=== PATIENT | female | born 1970 | race Caucasian/White ===

== ENCOUNTER 2016-12-24 16:00 | Inpatient (IN) | payer OTHER ==
[2017-01-06] MEDS ORDERED: FAMOTIDINE 20MG TABLET PO ONE (06:00)
[2017-01-06] MEDS ORDERED: CELECOXIB 100 MG CAPSULE PO ONE (06:00)
[2017-01-06] MEDS ORDERED: MECLIZINE 25 MG TABLET PO ONE (06:00)
[2017-01-06] MEDS ORDERED: CEFAZOLIN 2 Gram 2 GM/50 ML BAG IVPB ONE (06:00)
[2017-01-06] MEDS ORDERED: ACETAMINOPHEN 1,000 MG/100 ML BTL IV ONE (06:00)
[2017-01-06] MEDS ORDERED: METOCLOPRAMIDE 10 MG TABLET PO ONE (06:00)
[2017-01-06] MEDS ORDERED: ONDANSETRON HCL IV 4 MG/2 ML VIAL IVP PRN (10:30)
[2017-01-06] MEDS ORDERED: OXYCODONE HCL 5 MG TABLET PO PRN (10:30)
[2017-01-06] MEDS ORDERED: ZOLPIDEM TARTRATE 5 MG TABLET PO PRN (10:30)
[2017-01-06] MEDS ORDERED: METOCLOPRAMIDE HCL 10 MG/2 ML VIAL IVP PRN (10:30)
[2017-01-06] MEDS ORDERED: DIPHENHYDRAMINE HCL 25 MG CAPSULE PO PRN (10:30)
[2017-01-06] MEDS ORDERED: AL HYDROX/MAG HYDROX 30ML UD PO PRN (10:30)
[2017-01-06] MEDS ORDERED: SENNOSIDES/DOCUSATE SODIUM UD CAPSULE PO PRN (10:30)
[2017-01-06] MEDS: HYDROMORPHONE HCL 1 MG/ML CPJ IVP PRN (10:38)
[2017-01-06] MEDS: RINGERS SOLUTION,LACTATED 1,000 ML IV SCH (10:49)
--- NOTE | 2017-01-06 12:21 | RADIOLOGY REPORT ---
EXAM: LEFT HIP, TWO VIEWS HISTORY: PATIENT HAS A HISTORY OF LEFT TOTAL HIP ARTHROPLASTY. TECHNIQUE: Two views of the left hip are provided along with the comparison x- ray dated 10/14/16. FINDINGS: In the interval there has been the placement of a left total hip arthroplasty. Alignment of the left hip is anatomic. A drainage catheter tip is identified in the region of the lesser trochanter. Soft tissue emphysematous changes are identified overlying the left hip consistent with the recent surgery. Alignment of the left total hip arthroplasty is anatomic. IMPRESSION: INTERVAL PLACEMENT OF LEFT TOTAL HIP ARTHROPLASTY IS NOTED DISCUSSED ABOVE. JOB NUMBER: [id number] [facility]
[2017-01-06] MEDS: ACETAMINOPHEN 1,000 MG/100 ML BTL IV SCH ×2 (12:38→19:53)
[2017-01-06] MEDS ORDERED: HYDROMORPHONE HCL 2 MG/ML VIAL IV ONE ×2 (13:03→14:00)
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
[2017-01-06] MEDS: CEFAZOLIN 2 Gram 2 GM/50 ML BAG IVPB SCH ×2 (15:03→22:33)
[2017-01-06] MEDS ORDERED: NEOSTIGMINE 1 MG/1 ML,10ML VIAL IV ONE (15:04)
[2017-01-06] MEDS ORDERED: ROCURONIUM BROMIDE 50MG/5ML VIAL IV ONE (15:04)
[2017-01-06] MEDS ORDERED: ONDANSETRON HCL IV 4 MG/2 ML VIAL IVP ONE (15:04)
[2017-01-06] MEDS ORDERED: FENTANYL PF 0.25MG/5ML AMPUL IV ONE (15:04)
[2017-01-06] MEDS ORDERED: KETOROLAC 30 MG/ML VIAL IVP ONE (15:04)
[2017-01-06] MEDS ORDERED: MIDAZOLAM HCL 2MG/2ML VIAL IV ONE (15:04)
[2017-01-06] MEDS ORDERED: GLYCOPYRROLATE 0.2 MG/ML ML IV ONE (15:04)
[2017-01-06] MEDS ORDERED: LIDOCAINE 2% MDV (20MG/ML) 20ML VIAL IV ONE (15:04)
[2017-01-06] MEDS ORDERED: PROPOFOL 10 MG/ML VIAL IV ONE (15:04)
[2017-01-06] MEDS ORDERED: SEVOFLURANE 250 ML INH ONE (15:04)
[2017-01-06] MEDS: FONDAPARINUX 2.5 MG/0.5 ML SYR SQ SCH (15:09)
[2017-01-06] MEDS: OXYCODONE HCL 5 MG TABLET PO PRN ×2 (17:12→21:14)
[2017-01-06] MEDS ORDERED: PATIENT OWN MED: EACH NARES PRN (20:40)
[2017-01-06] MEDS ORDERED: OXYMETAZOLINE HCL 0.05% EACH NARES PRN (21:15)
[2017-01-06] MEDS: BUSPIRONE 7.5 MG PO SCH (21:28)
[2017-01-07] MEDS: ACETAMINOPHEN 1,000 MG/100 ML BTL IV SCH (01:08)
[2017-01-07] MEDS: OXYCODONE HCL 5 MG TABLET PO PRN ×3 (01:08→09:13)
[2017-01-07] MEDS: RINGERS SOLUTION,LACTATED 1,000 ML IV SCH ×2 (01:27→03:23)
[2017-01-07 06:21] LABS: HEMOGLOBIN 8.4 gm/dl (11.6-16.0); MEAN CELL VOLUME 97.7 fl (81-97); MEAN CORPUSCULAR HGB CONC 32.3 g/dl (32-36); PLATELET COUNT 203 K/uL (130-400); RED BLOOD COUNT 2.66 M/uL (3.80-5.40); RED CELL DISTRIBUTION WIDTH 11.6 % (11.5-14.5); WHITE BLOOD COUNT W/O DIFF 6.6 K/uL (4.2-12.2)
[2017-01-07 06:24] LABS: MEAN CORPUSCULAR HEMOGLOBIN 31.5 pg (27-33)
[2017-01-07] MEDS: HYDROMORPHONE HCL 1 MG/ML CPJ IVP PRN ×6 (08:14→21:40)
[2017-01-07] MEDS: CEFAZOLIN 2 Gram 2 GM/50 ML BAG IVPB SCH (08:16)
[2017-01-07] MEDS ORDERED: ACETAMINOPHEN W/ CODEINE 300MG/30MG TABLET PO PRN ×2 (10:30)
[2017-01-07] MEDS ORDERED: OXYCODONE/APAP 7.5MG/325MG TABLET PO PRN ×2 (10:30)
[2017-01-07] MEDS: CELECOXIB 100 MG CAPSULE PO SCH (11:05)
[2017-01-07] MEDS: NASACORT EACH NARES SCH (11:09)
[2017-01-07] MEDS: PREMARIN PO SCH (11:09)
[2017-01-07] MEDS: PATIENT OWN MED: LORATADINE 10 MG PO SCH (11:09)
[2017-01-07] MEDS: PATIENT OWN MED: SERTRALINE 50 MG PO SCH (11:10)
[2017-01-07] MEDS: BUSPIRONE 7.5 MG PO SCH ×2 (11:11→21:37)
--- NOTE | 2017-01-07 11:55 | Physical Therapy Tx Note ---
Physical Therapy Tx Note - Treatment Note Tolerated: Good (Patient having a lot of pain today and has had quite a lot of pain med. Just received another dose so willing to get up and walk with FWW. Able to actually walk and perform stairs and helped patient get dressed.) Total Time Spent With Patient: 30 Physical Therapy Tx Note: Detail (Patient seen in room, just had pain med so supine to sit with min assist with left LE, sit at edge of bed and assisted patient to put on long pants (sweats) then sit to stand with CGA, ambulated with FWW about 60 feet to stairs with WBAT left LE. Able to step down stairs with crutches (had switched out while standing at rail) with proper technique then back up steps with good tolerance and technique. Walked back to room with crutches WBAT and after back to bed changed height of crutches so better for patient. Assisted patient at edge of bed then left her to finish dressing; present to assist back to lie down or sit up in chair.) Physical Therapy Problem List: Detail (Decreased functional mobility, bed and transfers yet, decreased gait flat surfaces and steps.) Physical Therapy Goals: 1. Patient will be able to independently move from bed, get back into bed with very little assist. 2. Gait with appropriate assistive device community distances. 3. Steps as needed to go home safely. Prognosis: Good (Patient's mobility better today but quite a lot of issue with pain yet. Should do better this afternoon and plans to go home today if doctor feels doing well enough.) Physical Therapy Plan: Continue PT for rehab BID tomorrow and probable discharge home. If patient needs more PT, may be able to see her Tuesday am if has not passed skills for going home.
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
--- NOTE | 2017-01-07 15:28 | Physical Therapy Tx Note ---
Physical Therapy Tx Note - Treatment Note Tolerated: Good (Patient able to walk but still with significant pain and feels "clunking" at hip. Notes noise when lifts leg but pain increases with weightbearing. Has passed all skills to go home except pain not controlled yet.) Total Time Spent With Patient: 20 Physical Therapy Tx Note: Detail (Patient seen in room and sitting up in chair, sit to stand independently with FWW and ambulated into mendoza about 100 feet past nurse's station then back to room. Assisted patient into bed with min assist with left LE. Patient very sore so did not do exercises this afternoon. Patient understands all exercises.) Physical Therapy Problem List: Detail (Decreased functional mobility, bed and transfers yet, decreased gait flat surfaces and steps.) Physical Therapy Goals: 1. Patient will be able to independently move from bed, get back into bed with very little assist. 2. Gait with appropriate assistive device community distances. 3. Steps as needed to go home safely. Prognosis: Good (Once pain controlled, patient should do well. May stay overnight and SENIOR MANUFACTURING TECHNICIAN coming in tomorrow will check on patient to see if wants some therapy. Patient has passed all skills for discharge home.) Physical Therapy Plan: Continue PT for rehab BID tomorrow and probable discharge home. If patient needs more PT, may be able to see her Tuesday am if has not passed skills for going home.
[2017-01-07] MEDS: FONDAPARINUX 2.5 MG/0.5 ML SYR SQ SCH (18:18)
[2017-01-07] MEDS: OXYCODONE/APAP 7.5MG/325MG TABLET PO PRN ×2 (18:23→21:06)
[2017-01-07] MEDS: MAGNESIUM HYDROXIDE 30 ML UDC PO PRN (21:36)
[2017-01-08] MEDS: OXYCODONE/APAP 7.5MG/325MG TABLET PO PRN ×5 (00:14→14:01)
[2017-01-08] MEDS: RINGERS SOLUTION,LACTATED 1,000 ML IV SCH ×2 (01:12→17:03)
[2017-01-08] MEDS: HYDROMORPHONE HCL 1 MG/ML CPJ IVP PRN (02:40)
[2017-01-08 06:15] LABS: HEMATOCRIT 23.3 % (35.0-47.0); HEMOGLOBIN 7.4 gm/dl (11.6-16.0); MEAN CELL VOLUME 98.7 fl (81-97); MEAN CORPUSCULAR HGB CONC 31.8 g/dl (32-36); MEAN PLATELET VOLUME 10.2 fl (7.4-10.4); PLATELET COUNT 165 K/uL (130-400); RED BLOOD COUNT 2.36 M/uL (3.80-5.40); RED CELL DISTRIBUTION WIDTH 11.8 % (11.5-14.5); WHITE BLOOD COUNT W/O DIFF 6.2 K/uL (4.2-12.2)
[2017-01-08 06:16] LABS: MEAN CORPUSCULAR HEMOGLOBIN 31.3 pg (27-33)
[2017-01-08] MEDS: CELECOXIB 100 MG CAPSULE PO SCH (11:09)
[2017-01-08] MEDS: BUSPIRONE 7.5 MG PO SCH (11:18)
[2017-01-08] MEDS: PATIENT OWN MED: LORATADINE 10 MG PO SCH (11:19)
[2017-01-08] MEDS: PREMARIN PO SCH (11:19)
[2017-01-08] MEDS: PATIENT OWN MED: SERTRALINE 50 MG PO SCH (11:19)
[2017-01-08] MEDS: NASACORT EACH NARES SCH (11:19)
[2017-01-08] MEDS: MAGNESIUM HYDROXIDE 30 ML UDC PO PRN (11:41)
--- NOTE | 2017-01-08 12:54 | Physical Therapy Tx Note ---
Physical Therapy Tx Note - Treatment Note Tolerated: Good Total Time Spent With Patient: 60 Physical Therapy Tx Note: Detail (Pt was supine in bed upon arrival. Pt states still having 8/10 pain with gait and decreases with rest. Pt states still having "popping sound at left upper thigh area with activity. Pt completed ex's of glute sets, quad sets, heel slides, all x 10. Passive calf stretch 30 " hold x 3. Active hip IR to neutral in supine x 10. Pt ambulated x 200 ft. with crutches with contact guard assist. Pt went to the bathroom and completed self care independently. CYLINDER PRESS OPERATOR HELPER assist minimally with washing and dressing. Applied Pt' s lymphedema wrap as requested by Pt. MTT x 15 min. to left hip, ITB, hip adductors, pectinius releases with pt supine. Pt was able to complete all transfers from supine to sit to stand and return with min assist x 1. Pt independent in bed mobility. Pt was returned to bed, given nurses call light, ice pack to left hip, and bedside table within reach.) Physical Therapy Problem List: Detail (Decreased functional mobility, bed and transfers yet, decreased gait flat surfaces and steps.) Physical Therapy Goals: 1. Patient will be able to independently move from bed, get back into bed with very little assist. 2. Gait with appropriate assistive device community distances. 3. Steps as needed to go home safely. Prognosis: Good Physical Therapy Plan: Continue PT for rehab BID tomorrow and probable discharge home. If patient needs more PT, may be able to see her Tuesday am if has not passed skills for going home.
--- NOTE | 2017-01-08 13:54 | Physical Therapy Tx Note ---
Physical Therapy Tx Note - Treatment Note Tolerated: Good Total Time Spent With Patient: 5 Physical Therapy Tx Note: Detail (No charge follow up. Pt to be discharged from PT at this time as discharged from hospital by .) Physical Therapy Problem List: Detail (Decreased functional mobility, bed and transfers yet, decreased gait flat surfaces and steps.) Physical Therapy Goals: 1. Patient will be able to independently move from bed, get back into bed with very little assist. 2. Gait with appropriate assistive device community distances. 3. Steps as needed to go home safely. Prognosis: Good Physical Therapy Plan: Continue PT for rehab BID tomorrow and probable discharge home. If patient needs more PT, may be able to see her Tuesday am if has not passed skills for going home.
[2017-01-08] MEDS: FONDAPARINUX 2.5 MG/0.5 ML SYR SQ SCH ×3 (14:07→17:07)
--- NOTE | 2017-01-11 11:01 | Operative Note ---
DATE OF SURGERY: 01/06/2017 Surgeon: Tejas Ross DO Referring physician: DIVYA Person PREOPERATIVE DIAGNOSES: 1. Secondary osteoarthritis of the left hip. 2. Retained hardware of the left hip. POSTOPERATIVE DIAGNOSES: 1. Secondary osteoarthritis of the left hip. 2. Retained hardware of the left hip. OPERATION: 1. Left total hip arthroplasty. 2. Removal of hardware left hip. Anesthesia: General. PROCEDURE: This 46-year-old female was taken to the operating room and placed in the supine position on the operating room table. A general anesthetic was administered. She was placed in the right lateral decubitus position with all bony prominences well padded and the head well secured. The patient was secured perpendicular to the floor, and all scrubbed personnel wore personal isolation suits. A lateral hip incision was made dissecting down through the skin and subcutaneous tissue. Hemostasis was obtained with the electrocautery. The tensor was split in line with the skin incision to expose the lateral aspect of the greater trochanter. A self-retaining hip retractor was placed. Short rotators easily identified. Utilizing the electrocautery, we dissected down to the joint capsule and a capsulotomy was performed and a gonzalo made on the greater trochanter replaced Yanci pin retractors, one superiorly, one posterior superiorly, one posterior inferiorly, for excellent exposure to the acetabulum. The distance was measured from the gonzalo to the proximal pin and the hip was dislocated and the neck amputated. The pin, which had been placed in the hip, remained in the femur, it did not come out with the head. It broke through the head as we were pulling it out. We then placed a drill on the pin and were able to remove it that way without any difficulty. Subsequently, the neck cut was re-cut to satisfactory position. Subsequently, a Cobra retractor was placed anteriorly, osteophytes were removed from the hip and the soft tissue about the hip was removed including the labrum circumferentially and soft tissue at the base of the condyloid notch. We then began reaming with a size 44 mm reamer and reaming up in 1 mm increments to a size 48. The trial cup was placed and was felt to be satisfactory, and then subsequently a size 48 Trident cup was impacted into place with about 40 degrees of abduction and approximately 20 degrees of anteversion. The cup seemed to be solid and a trial liner was placed. We then directed our attention to the proximal femur and shorthand teacher was placed down the shaft after the box osteotome was used to cut the proximal femur. Then, we began reaming using an alternating [id number] technique starting with a size 5 and reamed up to a size 7. The size 7 broach was seated and excellent stability was identified. Trial reduction was accomplished and her hip was very contracted and very tight due to the previous radiation of her hip, but we were able to get this reduced, but it did take a -5 head to do so. Once this had been accomplished, the hip was taken through a range of motion with excellent stability of the hip being identified with flexion to 110 to 15, internal rotation to about 70 to 80 degrees, and wide abduction and external rotation with no instability being identified. All trial components were then removed and the wound copiously irrigated with pulse lavage lactated Ringer's solution. A size 36 mm internal diameter X3 liner was impacted into place, 0 degree, followed by the insertion of a size 7 collared secure fit femur and a size 36 mm -5 Biolox head that was impacted into place. The hip was then reduced and again taken through range of motion with excellent stability being identified. The wound again was copiously irrigated with lactated Ringer's solution. A drain placed through a separate stab incision. The short rotators were repaired through drill holes through the greater trochanter and this was done with #5 Ethibond suture. Subsequently, the tensor was repaired with a #2 Vicryl, subcutaneous tissue closed with 0 Vicryl, the skin was stapled. Sterile dressings applied and the patient taken to the recovery room in satisfactory condition. GROSS PATHOLOGY: This patient demonstrated the contracture of the left hip, severe osteoarthritis secondary to her previous surgery and radiation of the hip was identified, with osteophytes around the femur, which were removed. She had a threaded Yanci pin in the neck of the femur, which extended out to the lateral cortex and this was removed in the manner described above. SIM
--- NOTE | 2017-01-11 17:50 | Discharge Summary ---
DATE OF ADMISSION: 01/06/2017 DATE OF DISCHARGE: 01/08/2017 ADMITTING DIAGNOSES: 1. Osteoarthritis of the left hip. 2. Retained hardware, left hip. DISCHARGE DIAGNOSES: 1. Osteoarthritis of the left hip. 2. Retained hardware, left hip. OPERATIVE PROCEDURES: 1. Elective left total hip arthroplasty. 2. Removal of hardware, left hip. DESCRIPTION: This 46-year-old female was taken to the operating room for total hip arthroplasty and hardware removal. At the time of the surgery, the pin was removed, however it was not noted that the pin actually broke off leaving a very small segment of that pin buried in the bone, however it did not interfere with insertion of the broaches or final prosthesis, and postoperative x-ray demonstrated a small fragment of pin, which certainly was not causing a problem of any kind. The x-rays otherwise showed excellent position and alignment of the components. Patient did well postoperatively, but was quite painful initially, and so needed to stay the second day. She did not show any evidence of DVT. Pain much improved today. The patient will be discharged home, and she will be discharged with outpatient physical therapy and lymphedema therapy. She will take aspirin 325 mg b.i.d. She will take Percocet 7.5/325 one or two every 6 hours as necessary for pain, and she was given 80. Routine wound care instructions were given. I will see her on 01/20/2017 for followup visit. Should she have any problems prior to being seen, she was instructed to call my office. SIM
== END 2017-01-08 15:03 | disposition home or self-care (01) | DRG 470 ==
LOC: MEDSURG 01-06 06:26
PROVIDERS: ADMIT Orthopaedic Surgery; ATTEND Orthopaedic Surgery
PROC: 0YPB0JZ Removal of Synthetic Substitute from Left Lower Extremity, Open Approach (ICD-10-PCS; 2017-01-06)
PROC: 0SRB04A Replacement of Left Hip Joint with Ceramic on Polyethylene Synthetic Substitute, Uncemented, Open Approach (ICD-10-PCS; principal; 2017-01-06 08:00)
DX: M16.7 Other unilateral secondary osteoarthritis of hip (principal); T84.89XA Other specified complication of internal orthopedic prosthetic devices, implants and grafts, initial encounter; Z85.830 Personal history of malignant neoplasm of bone; I89.0 Lymphedema, not elsewhere classified
CPT/HCPCS: 85025; 94760; 97110; 97116; 97140; 97165; 97530; C1776; J1170; J1885; J2405; J2710; J7120

== ENCOUNTER 2019-03-28 14:32 | Observation (INO) | payer MEDICAID ==
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
[2019-03-28] MEDS ORDERED: 0.9 % SODIUM CHLORIDE 1,000 ML BAG IV ONE (15:43)
[2019-03-28 15:57] LABS: ABSOLUTE NEUTROPHIL COUNT 10.76; HEMATOCRIT 41.7 % (35.0-47.0); HEMOGLOBIN 13.7 gm/dl (11.6-16.0); MEAN CELL VOLUME 92.3 fl (81-97); MEAN CORPUSCULAR HEMOGLOBIN 30.3 pg (27-33); MEAN CORPUSCULAR HGB CONC 32.9 g/dl (32-36); MEAN PLATELET VOLUME 9.8 fl (7.4-10.4); PLATELET COUNT 281 K/uL (130-400); RED BLOOD COUNT 4.52 M/uL (3.80-5.40); RED CELL DISTRIBUTION WIDTH 13.1 % (11.5-14.5); WHITE BLOOD COUNT W/O DIFF 11.8 K/uL (4.2-12.2)
[2019-03-28 16:08] LABS: BLOOD UREA NITROGEN 10 mg/dL (6-20); CREATININE 0.5 mg/dL (0.5-0.9); EST GLOMERULAR FILTRATION RATE > 60 mL/min
[2019-03-28 16:10] LABS: GLUCOSE,RANDOM 110 mg/dL (74-109)
[2019-03-28 16:16] LABS: PLATELET ESTIMATE NORMAL (NORMAL)
[2019-03-28] MEDS ORDERED: ACETAMINOPHEN 1,000 MG/100 ML BTL IVPB ONE (16:28)
[2019-03-28] MEDS ORDERED: VANCOMYCIN HCL 1,000 MG in 0.9 % SODIUM CHLORIDE 250ML 250 ML IVPB ONE (16:29)
[2019-03-28] MEDS ORDERED: VANCOMYCIN 1GM/200ML PREMIX 1 GM/200 ML PIGGYBACK IVPB ONE (16:45)
--- NOTE | 2019-03-28 17:40 | ULTRASOUND REPORT ---
EXAMINATION: Left Lower Extremity Venous Duplex Doppler Ultrasound EXAM DATE: 03/28/2019 5:21 PM TECHNIQUE: Real-time B-mode imaging with and without compression was used to evaluate the left lower extremity for deep venous thrombosis (DVT). Duplex Doppler with color and spectral Doppler was used . INDICATION: swollen red leg COMPARISON: None FINDINGS: Left Common Femoral Vein: No DVT. Left Femoral Vein: No DVT. Left Popliteal Vein: No DVT. Left Proximal Deep Femoral Vein: No DVT. Left Posterior Tibial Veins: No DVT. Left Peroneal Veins: No DVT. Left proximal Great Saphenous Vein: No thrombus. Duplex Doppler: Spectral Doppler waveforms show normal respiratory phasicity in the common femoral vein. Additional Findings: None. IMPRESSION: There is no deep venous thrombosis in the visualized deep veins of the left lower extremity. Dictated by: Randy Everett MD on 03/28/2019 5:36 PM. .
[2019-03-28] MEDS ORDERED: 0.9 % SODIUM CHLORIDE 1000ML 1,000 ML IV ONE (19:28)
[2019-03-28] MEDS ORDERED: VANCOMYCIN HCL 1,000 MG in 0.9 % SODIUM CHLORIDE 250ML 250 ML IVPB SCH (19:28)
[2019-03-28] MEDS: ACETAMINOPHEN 325 MG TAB PO PRN (20:21)
[2019-03-29] MEDS: VANCOMYCIN HCL 1,250 MG in 0.9 % SODIUM CHLORIDE 250ML 250 ML IVPB SCH ×3 (00:26→20:31)
[2019-03-29] MEDS: ACETAMINOPHEN 325 MG TAB PO PRN ×2 (07:34→20:26)
[2019-03-29] MEDS: ENOXAPARIN 40 MG/0.4 ML SYR SC SCH (10:24)
[2019-03-29] MEDS: SERTRALINE HCL 50 MG TABLET PO SCH ×2 (10:49→21:47)
[2019-03-29] MEDS: HYDROCHLOROTHIAZIDE 25 MG TABLET PO SCH (10:49)
[2019-03-29] MEDS: LOSARTAN POTASSIUM 25 MG TABLET PO SCH (10:49)
[2019-03-29] MEDS: MELOXICAM 7.5 MG TABLET PO SCH (10:50)
[2019-03-29] MEDS: FAMOTIDINE 20MG TABLET PO SCH ×2 (10:50→21:47)
[2019-03-29] MEDS ORDERED: MUPIROCIN OINT 22 GM TUBE TOP PRN (13:00)
[2019-03-29] MEDS: DOXYCYCLINE HYCLATE 100 MG CAPSULE PO SCH ×2 (13:26→21:47)
--- NOTE | 2019-03-29 15:00 | History and Physical Report ---
DATE: 03/29/2019 HISTORY OF PRESENT ILLNESS: A 48-year-old female who presented to the emergency department stating she had fever, chills, headache, and a history of cellulitis of her skin. She has a red toe with possible ingrown nail, left great toe. She said she bumped that and pus came out along the side of the nail approximately 3 days ago. She also has chronic lymphedema of the left leg but she wraps her legs daily. Her primary is Caroline Puentes NP. After taking the wraps off, her whole left leg was red all the way up to the groin. She said it was not like this yesterday. The patient has had multiple surgeries on her left hip. At 10 years of age, she had a slipped capitis of the hip requiring surgery at 10 and 13 years of age. She also had 3 hip replacement surgeries on the left hip after a fracture and then problems with that. Her last surgery was in November [address] [place] [address] Wang. The patient vomited in the ER and feels very nauseated. PAST MEDICAL HISTORY: She has lymphedema of the left leg, multiple surgeries on the left leg starting as a 10-year-old with a slipped capitis of the hip. She had surgery at 10 and at 13. Three hip replacement surgeries, last one being November 2018. Occasionally has vertigo. Hypertension, depression, anxiety. History of cancer with abdominal rhabdomyosarcoma and radiation. She had blood transfusions at age 3. PAST SURGICAL HISTORY: Hysterectomy, cancer removed from the abdomen, rhabdomyosarcoma, cholecystectomy, multiple surgeries on the left hip, fracture surgery on her left wrist. MEDICATIONS: 1. Famotidine 40 mg daily. 2. Calcium with vitamin D 1 b.i.d. 3. Hydrochlorothiazide 25 mg a day. 4. Premarin 1.25 mg daily. 5. Cetirizine 10 mg daily. 6. Losartan 75 mg a day. She takes a 50 plus a 25 for her hypertension. 7. Meloxicam 50 mg a day. 8. Sertraline 150 mg a day. She also uses compression socks on her left leg for her lymphedema. ALLERGIES: HYDROCODONE, TRAMADOL. SOCIAL HISTORY: She has never smoked. No drug use. Occasional alcohol use. FAMILY HISTORY: Father, mother, grandparents had cancer. REVIEW OF SYSTEMS: HEENT: She has a fever, nauseated, headache. No pain moving her neck. No signs of meningitis. Cardiovascular: No arrhythmias, chest pain, palpitations, or orthopnea. Respiratory: No cough, cold, or congestion. Gastrointestinal: No nausea, vomiting, diarrhea, black stools, or bloody stools. Genitourinary: No dysuria, hematuria, frequency, or burning on urination. Musculoskeletal: See the Chief Complaint. She has redness in the entire left leg up to the groin and redness on the left great toe with a paronychia that drained spontaneously a couple of days ago. Neurological: Denies tremors, paralysis but she does have a neuropathy. DIRECT SUPPORT PROFESSIONAL: No recent vaginal bleeding, lumps in her breasts, or breast pain. Endocrine: She has hypothyroidism. No diabetes. No change in weight. No polyuria or polydipsia. Integument: See Chief Complaint. She has a red leg from the ankle to the groin on the left side with a red left great toe and a previous paronychia that drained. No jaundice. PHYSICAL EXAMINATION: VITALS: Height 5 feet 4 inches, weight 160 pounds. Temperature in the emergency department 102.4, pulse 105, blood pressure 146/86, respiratory rate 20, pulse ox 98% on room air. HEENT: Pupils are equal, round, and reactive to light and accommodation. Extraocular muscles are intact. Throat is clear. Nose is clear. Tympanic membranes are swanson. NECK: Supple. No jugular venous distention. No hepatojugular reflux. No signs of meningitis. LYMPH NODES: No enlargement palpated. CARDIOVASCULAR: Regular rate and rhythm without murmurs, clicks, rubs, or gallops. RESPIRATORY: Clear to auscultation and percussion. ABDOMEN: Soft, nontender. No hepatosplenomegaly, no masses, no tenderness. Bowel sounds are active. EXTREMITIES: She has chronic lymphedema of the left leg. She has redness of the entire left leg and redness of the left great toe. BREASTS: Deferred. RECTAL: Deferred. GENITALIA: Deferred. NEUROLOGIC: Cranial nerves II-XII intact. No gross defects. Sensation normal, strength normal. Deep tendon reflexes equal bilaterally. MENTAL STATUS: Alert and oriented x3. SKIN: There is redness of the left lower leg with redness of the great toe with signs of paronychia and possible ingrown toenail of left great toenail. IMPRESSION: 1. Cellulitis of the left leg. 2. Acute paronychia left great toe with redness of the great toe. 3. Multiple surgeries on the left hip, last one being November 2018 for hip replacement. 4. Hypertension. 5. She has had abdominal rhabdosarcoma as a child with radiation therapy. PLAN: We will admit to the hospital with IV vancomycin. DVT coverage with Lovenox. Further evaluation. MTDD
[2019-03-29 19:32] LABS: CREATININE 0.5 mg/dL (0.5-0.9); EST GLOMERULAR FILTRATION RATE > 60 mL/min
[2019-03-30] MEDS: VANCOMYCIN HCL 1,250 MG in 0.9 % SODIUM CHLORIDE 250ML 250 ML IVPB SCH ×3 (03:17→10:24)
[2019-03-30] MEDS ORDERED: IBUPROFEN 400 MG TABLET PO PRN (04:53)
[2019-03-30] MEDS ORDERED: VANCOMYCIN 1.5GM/300ML PREMIX 1.5 GM/300 ML PIGGYBACK IVPB SCH (09:30)
[2019-03-30] MEDS: LOSARTAN POTASSIUM 25 MG TABLET PO SCH (10:22)
[2019-03-30] MEDS: HYDROCHLOROTHIAZIDE 25 MG TABLET PO SCH (10:25)
[2019-03-30] MEDS: ENOXAPARIN 40 MG/0.4 ML SYR SC SCH (10:25)
[2019-03-30] MEDS: MELOXICAM 7.5 MG TABLET PO SCH (10:26)
[2019-03-30] MEDS: DOXYCYCLINE HYCLATE 100 MG CAPSULE PO SCH (10:26)
--- NOTE | 2019-03-30 12:51 | Discharge Summary ---
Providers Discharge Summary Date: 03/30/19 Date of admission: 03/28/19 18:45 Expected Date of Discharge: 03/30/19 Attending physician: Guru Go Primary care physician: Caroline Puentes N.P. Physical Exam - Vital Signs Vital Signs: Vital Signs - Last 24 Hrs Temp Pulse Pulse Resp BP BP Pulse Ox 03/30/19 10:00 97.6 F 84 14 121/69 98 03/30/19 08:08 98.0 F 80 14 112/68 97 03/30/19 05:02 97.7 F 69 18 114/69 97 03/30/19 02:00 98.0 F 68 16 108/62 96 03/29/19 20:00 97.6 F 76 18 116/69 97 03/29/19 17:16 98.3 F 76 16 107/66 99 03/29/19 15:15 98.1 F 72 20 106/63 97 - General General Appearance: Alert, Oriented x3, Cooperative, No acute distress, Mild distress, Other (fever) - Head Head exam: Normal inspection - Eye Eye exam: Normal appearance, PERRL Pupils: Normal accommodation - ENT ENT exam: Normal exam, Mucous membranes moist, Normal external ear exam, Normal orophraynx, TM's normal bilaterally Ear exam: Normal external inspection. negative: External canal tenderness Nasal Exam: Normal inspection. negative: Discharge, Sinus tenderness Mouth exam: Normal external inspection, Tongue normal Teeth exam: Normal inspection. negative: Dental caries Throat exam: Normal inspection. negative: Tonsillar erythema, Tonsillar exudate - Neck Neck exam: Normal inspection, Full ROM. negative: Tenderness - Respiratory Respiratory exam: Normal lung sounds bilaterally. negative: Respiratory distress - Cardiovascular Cardiovascular Exam: Regular rate, Normal rhythm, Normal heart sounds - GI/Abdominal GI/Abdominal exam: Soft, Normal bowel sounds. negative: Tenderness - Rectal Rectal exam: Deferred - exam: Deferred - Extremities Extremities exam: Full ROM, Normal capillary refill, Tenderness (left great toe and redness of the entire leg) - Back Back exam: Reports: Normal inspection, Full ROM. Denies: Muscle spasm, Rash noted, Tenderness - Neurological Neurological exam: Alert, Normal gait, Oriented X3, Reflexes normal - Psychiatric Psychiatric exam: Normal affect, Normal mood - Skin Skin exam: Rash (redness of the left great leg) Hospitalization - Hospitalization Admission Diagnosis: cellulitis of leg. paronychia left great toe. ingrown toe nail - Problem List/Discharge Diagnosis (1) Lymphedema Current Visit: Yes Status: Acute Base Code: I89.0 - LYMPHEDEMA, NOT ELSEWHERE CLASSIFIED Diagnosis Priority: Secondary Comment: go back to wearing compression socks and wraps as before (2) Ingrown left big toenail Current Visit: Yes Status: Acute Base Code: L60.0 - INGROWING NAIL Diagnosis Priority: Primary Comment: partial nail removed to stop the ingrown nail and to allow it to drain. done in the ED (3) Acute paronychia Current Visit: Yes Status: Acute Base Code: [id number] - Diagnosis Priority: Primary Comment: treated with vancomycin IV and oral doxy 100 mg bid on discharge sending home with oral [id number] mg bid and oral keflex 500 mg TID (4) Cellulitis Current Visit: Yes Status: Acute Discharge Diagnosis: Site of cellulitis: extremity Site of cellulitis of extremity: lower extremity Laterality: left Qualified Code(s): L03.116 - Cellulitis of left lower limb Base Code: L03.90 - CELLULITIS, UNSPECIFIED Comment: treated initially with IV vancomycin and oral doxy - Disposition discharge to home for oral antibiotics - Hospitalization Course Disposition: Home, Self-Care Hospital Course: the redness in the leg is improving dramatically on discharge and the toe is healing nicely Procedures: Imaging and X-Rays 03/28/19 15:42 VENOUS DOPPLER LOWER EXT LT [US] Stat Abnormal Labs: Abnormal Lab Results 03/28/19 03/28/19 Range/Units 15:48 15:52 Neutrophils % 90.0 H (47-80) % Lymphocytes 5.0 L (16-45) % Sodium 135 L (136-145) mmol/L Chloride 93 L (98-107) mmol/L Random Glucose 110 H (74-109) mg/dL Condition at Discharge: (2) Stable Discharge Diagnosis: cellulitis of left leg, Acute paronychia left great toe,Lymphedema, Ingrow VTE Discharge VTE Reason For No Overlap Therapy: Not Indicated Discharge Medications - Discharge Medications Prescriptions: Mupirocin [Bactroban] 1 gm TOP BID PRN #30 gm PRN Reason: Split Medications Cephalexin [Keflex] 500 mg PO TID #30 cap Doxycycline Hyclate [Vibramycin] 100 mg PO BID #20 capsule Home Medications: Ambulatory Orders Calcium Carb, Citrate/Vit D3 [Calcium + D3 ER Tablet] 1 each PO BID tab 12/18/15 [Last Taken 12/18/15] Cetirizine HCl 10 mg PO QHS 03/29/19 [Last Taken Unknown] Famotidine 40 mg PO QHS 03/29/19 [Last Taken Unknown] Sertraline HCl [Zoloft] 150 mg PO QHS 03/29/19 [Last Taken Unknown] Acetaminophen [Tylenol 325Mg] 650 mg PO Q6H PRN tablet 03/30/19 [Last Taken Unknown] Cephalexin [Keflex] 500 mg PO TID #30 cap 03/30/19 [Last Taken Unknown] Doxycycline Hyclate [Vibramycin] 100 mg PO BID #20 capsule 03/30/19 [Last Taken Unknown] Mupirocin [Bactroban] 1 gm TOP BID PRN #30 gm 03/30/19 [Last Taken Unknown] Discharge Plan - Discharge Instructions Activity at Discharge: Increase Activity as Tolerated Diet at Discharge: Regular Diet Dressing Change: Twice a day Additional Instructions: Follow up appointment with Caroline Puentes NP on April 05. restart lymph edema dressing wash great toe twice a day with soap use bactroban twice a day on great toe Quality Measures - Quality Measures Quality Measures: Documentation of Current Medications in Medical Record, Screening for High Blood Pressure and F/U Documented - Current Medications Quality Measure: Measure #130: Documentation of Current Medications Documentation of Current Medications: <Current Medications Documented/Reviewed> [G8428] - Blood Pressure Screening Quality Measure: Screening for High Blood Pressure and Follow-Up Documented Does Patient Have Any of the Following: No Blood Pressure Classification: Normal BP Reading Systolic Measurement: 104 Diastolic Measurement: 63 Screening for High Blood Pressure: < Normal BP, F/U Not Required > [G8783] - Elder Abuse Suspicion Index EASI Reference Information: Pat FARFAN, Danny C, Gene D, Yolanda M.Development and validation of a tool to assist physicians identification of elder abuse: The Elder Abuse Suspicion Index (EASI ). Journal of Elder Abuse and Neglect, 2008; 20 (3): 276-300.
--- NOTE | 2019-04-02 07:30 | Discharge Summary ---
DATE: 03/30/2019 at about 1 p.m. DISCHARGE DIAGNOSES: 1. Cellulitis of the left leg. 2. Left great toe paronychia. 3. Lymphedema of the left leg secondary to abdominal rhabdo cancer as a 3-year-old with radiation and surgery to that area. 4. Ingrown toenail, partially removed the nail in the emergency department. 5. Multiple surgeries of the left hip, the last one November 2018 for a hip replacement. 6. Hypertension. ATTENDING PHYSICIAN: Guru Go DO REASON FOR HOSPITALIZATION: A 48-year-old female who presented to the emergency department stating she had fever, chills, headache, and history of cellulitis of her skin. She has a red toe with possible ingrown nail, left great toe. She said that she bumped the toe and she had pus come out from under the nail about 3 days ago. She has chronic lymphedema of the left leg since she was 3 years old. Her primary is Caroline Puentes NP. After taking the wraps off the leg, her whole leg was red all the way up to the groin. She said it was not like that the day before. The patient has had multiple surgeries of the left hip starting at 10 years of age for a slipped capitis of the hip and 3 left hip replacement surgeries, the last being in November [address] [place] [address] Wang. The patient was vomiting in the ER and was feeling very nauseated. SIGNIFICANT FINDINGS: A venous Doppler was done which was negative for DVT. WBC 11,800, hemoglobin 13.7, neutrophils 90, bands 4, lymphs 5, potassium 3.4, BUN 10, creatinine 0.5, lactic acid normal at 2, procalcitonin is 0.057, vancomycin trough was 9.6 while she was on the vancomycin. THERAPY PROVIDED: The patient was started on IV vancomycin and oral doxycycline. The leg improved dramatically on the second day in the hospital where I feel comfortable sending her home with oral doxycycline and oral Keflex 3 times a day. CONDITION ON DISCHARGE: Much improved. DISCHARGE INSTRUCTIONS: Follow up with Caroline Puentes on 04/05/2019 as scheduled, sooner if she is having troubles. Medications on discharge include Bactroban ointment twice a day to the left great toenail area, Keflex 500 mg t.i.d. for 10 days, doxycycline 100 mg b.i.d. for 10 days. Continue her home medication of calcium and vitamin D b.i.d., cetirizine 10 mg at h.s., famotidine 40 mg q.h.s., sertraline 150 mg at h.s., Tylenol p.r.n. MTDD
== END 2019-03-30 14:40 | disposition home or self-care (01) ==
LOC: ER 14:32 → MEDSURG 18:45
PROVIDERS: ADMIT Emergency Medicine; ATTEND Emergency Medicine
DX: L03.032 Cellulitis of left toe (principal); R51 Headache; I89.0 Lymphedema, not elsewhere classified; R01.1 Cardiac murmur, unspecified; C49.4 Malignant neoplasm of connective and soft tissue of abdomen; Z96.642 Presence of left artificial hip joint
CPT/HCPCS: 82565; 83605; 85730; 80048; 80202; 84145; 85027; 93971; 95117; G0378 ×3; J3370 ×4; 96365; 96366; 99217; 99220; 99285; J1650; J7050

== ENCOUNTER 2019-04-12 12:46 | Emergency (ER) | payer MEDICAID ==
[2019-04-12] MEDS ORDERED: CEPHALEXIN 500 MG CAPSULE PO STA (12:54)
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
== END 2019-04-12 13:20 | disposition home or self-care (01) ==
LOC: ER 12:46
DX: S90.412A Abrasion, left great toe, initial encounter (principal); W54.1XXA Struck by dog, initial encounter; Y92.009 Unspecified place in unspecified non-institutional (private) residence as the place of occurrence of the external cause
CPT/HCPCS: 99283